=== PATIENT | male | born 1975 | race Caucasian/White ===

== ENCOUNTER 2018-02-07 09:17 | Emergency (ER) | payer OTHER ==
[~2018-02-07] VITALS: Ht 182.9 cm; Wt 88.5 kg
[2018-02-07] MEDS ORDERED: IBUPROFEN 600600 M1 PO (10:08)
[2018-02-07] MEDS ORDERED: HYDROCODONE-AP1 EAC6 PO (10:08)
[2018-02-07 10:39] VITALS: BP 130/85
== END 2018-02-07 10:40 | disposition home or self-care (01) ==
LOC: ER 09:17
DX: S62.617A Displaced fracture of proximal phalanx of left little finger, initial encounter for closed fracture (principal); F17.210 Nicotine dependence, cigarettes, uncomplicated; Z88.1 Allergy status to other antibiotic agents; Z88.0 Allergy status to penicillin; V89.2XXA Person injured in unspecified motor-vehicle accident, traffic, initial encounter; Y92.89 Other specified places as the place of occurrence of the external cause; Y93.89 Activity, other specified; Y99.8 Other external cause status